=== PATIENT | female | born 1970 | race Hispanic/Latino ===

== ENCOUNTER 2016-10-07 21:21 | Emergency (ER) | payer OTHER ==
[~2016-10-07] VITALS: Ht 157.5 cm; Wt 74.4 kg
[~2016-10-07 21:21] MED LIST: ANTIVERT 25 MG25 MG PO; AZITHROMYCIN250 M1 PO; FLEXERIL10 MG PO; GUAIFENESIN-COD10 ML PO; KETOROLAC TROME10 M1 PO; MOTRIN800 MG PO; PERCOCET 325 MG1 TA2 PO; PERCOCET 5-3251 EACH PO; PROAIR HFA8.5 GM INH; VALIUM5 M1 PO
--- NOTE | 2016-10-07 22:04 | ED HEADACHE COMPLAINT ---
History of Present Illness General Chief Complaint: General Adult Stated Complaint: HIGH BP, HEART RACING, HEAD PAIN,DIZZY PER PT Source: patient, family Exam Limitations: no limitations Vital Signs & Intake/Output Vital Signs & Intake/Output Vital Signs Date Time Temp Pulse Resp B/P Pulse O2 O2 Flow FiO2 Ox Delivery Rate 10/07 2130 98.0 89 19 112/74 100 Room Air Allergies Coded Allergies: NO KNOWN ALLERGIES (08/22/14) Reconcile Medications Albuterol Sulfate (Proair Hfa) 8.5 GM HFA.AER.AD 2 PUF INH Q4-6 PRN PRN BRONCHITIS Azithromycin 250 MG TABLET 0 PO DAILY BRONCHITIS USE DIRECTED Ketorolac Tromethamine 10 MG TABLET 1 TAB PO TID PRN PAIN OXYCODONE HCL/ACETAMINOPHEN (Percocet 5-325 MG Tablet) 325 MG/5 MG TAB 1 TAB PO Q4-6 PRN PRN PAIN Oxycodone HCl/Acetaminophen (Percocet 5-325 MG Tablet) 5 MG-325 MG TABLET 1 TAB PO TID PRN PAIN Triage Note: PT TO ED FOR FOUR DAYS OF DIZZINESS, PALPITATIONS AND HTN. PT STATING SHE CHECKED HER BP AND HR AT [facility] "AND IT WAS 64 AND THEN IT WAS 70 AND THEN IT WAS 69 SO I CAME RIGHT HERE." DENIES ANY CP, REPORTING INTERMITTENT DIZZINESS THAT SHE ASSOCIATES WITH "A PINCHING FEELING IN MY HEAD AND MY EARS GET HOT" Triage Nurses Notes Reviewed? yes : No Patient currently breastfeeds: No HPI: Ms. Iniguez is a 46 yo f w/ pre-diabetes presenting to the ED for dizziness and headache. Patient states she's had dizziness and a headache over the past 4 days. She describes the headache as pressure-like sensation over bilateral temples. Patient states it feels like someone has some tight rubber band wrapped around her head. Patient denies any changes in vision, chest pain, shortness of breath. She also denies any weakness or numbness tingling. 2 days ago she took Motrin one dose and yesterday she took one aspirin. Today she was at [facility] per the patient's daughter, the patient has been diagnosed as a prediabetic and has had multiple elevated glucoses in the office. Past History Travel History Traveled to [place] past 21 day No Medical History Any Pertinent Medical History? see below for history Neurological: NONE EENT: NONE Cardiovascular: NONE Respiratory: NONE Gastrointestinal: NONE Hepatic: NONE Renal: NONE Musculoskeletal: ARTHROSCOPE LEFT KNEE Psychiatric: NONE Endocrine: NONE Blood Disorders: NONE Cancer(s): NONE [employer]/Reproductive: NONE Surgical History Surgical History: non-contributory, N Psychosocial History Who do you live with Spouse What is your primary language Austrian Tobacco Use: Never used ETOH Use: denies use Illicit Drug Use: denies illicit drug use Family History Hx Contributory? No Review of Systems Review of Systems Constitutional: Reports: no symptoms. Eyes: Reports: photophobia. Ears, Nose, Throat, Mouth: Reports: ear pain. Respiratory: Reports: no symptoms. Cardiovascular: Reports: palpitations. Denies: chest pain, edema, syncope. Gastrointestinal/Abdominal: Reports: no symptoms. Genitourinary: Reports: frequency. Denies: dysuria. Musculoskeletal: Reports: no symptoms. Skin: Reports: no symptoms. Neurological/Psychological: Reports: headache, other (dizziness). Denies: numbness, paresthesia. Hematologic/Endocrine: Reports: no symptoms. Endocrine: Reports: no symptoms. Immunologic/Allergic: Reports: no symptoms. All Other Systems: Reviewed and Negative Physical Exam Physical Exam General Appearance: well developed/nourished, no apparent distress, alert, awake , anxious Head: atraumatic, normal appearance Eyes: Bilateral: normal appearance, PERRL, EOMI. Ears, Nose, Throat: normal pharynx, normal ENT inspection, hearing grossly normal, normal TMs bilaterally Neck: normal inspection, supple, full range of motion Respiratory: normal breath sounds, chest non-tender, no respiratory distress Cardiovascular: regular rate/rhythm Gastrointestinal: normal bowel sounds, soft, suprapubic tenderness Back: normal inspection, normal range of motion Extremities: normal inspection, normal capillary refill, normal range of motion Psychiatric: awake, alert, oriented x 3 Cranial Nerves: normal hearing, normal speech, PERRL Coordination/Gait: normal finger to nose, normal gait Motor/Sensory: no motor/sensory deficits Skin: intact, normal color, warm/dry Lymphatic: no anterior cervical ryan Core Measures Severe Sepsis Present: No Septic Shock Present: No Progress Differential Diagnosis: cluster LOTT, intracranial Hem., meningitis, migraine LOTT, sinusitis, tension LOTT, temporal arteritis, UTI Plan of Care: Orders Procedure Date/time Status FingerStick- Glucose 10/08 2203 Active CULTURE,URINE 10/08 2203 Active URINALYSIS 10/08 2203 Complete EKG 10/07 2121 Active Laboratory Tests 10/07/162209: Urine Color YEL, Urine Clarity CLEAR, Urine pH 6.5, Ur Specific [place] <= 1.005 , Urine Protein NEG, Urine Ketones NEG, Urine Nitrite NEG, Urine Bilirubin NEG, Urine Urobilinogen 0.2, Ur Leukocyte Esterase NEG, Ur Microscopic SEDIMENT EXAMINED, Urine RBC 1-3, Ur Epithelial Cells FEW, Urine Bacteria FEW H, Urine Hemoglobin TRACE-INTACT, Urine Glucose NEG Microbiology 10/07 2209 URINE ROUT: Urine Culture - RECD 46-year-old female that is prediabetic presenting with dizziness headache over the past 4 days. Patient has been under dosing all medications. She took Motrin one time 2 days ago and one single aspirin yesterday. She has completely normal neuro exam and no head trauma. Unlikely spontaneous intracranial hemorrhage. Patient's blood pressure here is 120s systolically. Her other reported blood pressures from [facility] are also the same. Given that her blood pressure is within normal limits, unlikely hypertensive urgency. Patient also did endorse some mild photophobia that sporadic over the past few days. This is likely a tension headache or migraine headache. Patient was afebrile here and has normal range of motion of her neck without any stiffness, so unlikely meningitis. Patient did indicate that she's had multiple elevated glucoses. Point of care glucose here in the emergency department is 91. Unlikely significant electrolyte abnormalities with normal by mouth intake and a normal glucose. She does endorse some increased urinary frequency without dysuria. Positive suprapubic tenderness on palpation. We'll obtain UA to assess for possible UTI. Patient's urine is otherwise negative. Headache is significantly improved after Motrin and Tylenol. The patient has been underdosing medication. We'll encourage by mouth intake and appropriate dosage of medications. Patient requested prescriptions for both Tylenol and Motrin. She is also been given return precautions. (KIT CONRAD,AYDEE) Initial ED EKG: normal axis, none, normal intervals, normal p-waves, normal QRS complex, normal sinus rhythm, no ST T wave changes Departure Departure Time of Disposition: 2255 Disposition: HOME OR SELF CARE Condition: Stable Clinical Impression Primary Impression: Headache, tension-type Qualifiers: Headache chronicity pattern: unspecified pattern Intractability: not intractable Qualified Code: G44.209 - Tension-type headache, unspecified, not intractable Referrals: SHAE MOTA APRN (PCP/Family) Additional Instructions: Follow-up with her primary care doctor as needed. Remember to appropriately dose your medications. I have written a prescriptions for 600 mg of Motrin as well as 650 of Tylenol. You can take these up to every 6 hours. I would recommend you take one or the other. If you would have worsening headache, weakness, chest pain, changes in vision or any other concerning symptoms, please return to the emergency department for evaluation Departure Forms: Customer Survey General Discharge Information Prescriptions: Current Visit Scripts Ibuprofen 1 TAB PO TID PRN headache #30 TAB with food Acetaminophen (Tylenol Extra Strength) 1 TAB PO TID PRN headache #30 TAB
[2016-10-07] MEDS ORDERED: TYLENOL EXTRA500 M2 PO (23:00)
[2016-10-07] MEDS ORDERED: IBUPROFEN600 M1 PO (23:00)
[2016-10-07 23:04] VITALS: BP 123/59
== END 2016-10-07 23:07 ==
LOC: ERH 21:21
DX: G44.209 Tension-type headache, unspecified, not intractable (principal)
CPT/HCPCS: 81001; 87086; 93005; 93010